=== PATIENT | female | born 1970 | race Caucasian/White ===

== ENCOUNTER → 2023-08-27 | Outpatient (CLI) | payer OTHER ==
--- NOTE | 2023-08-27 14:30 | CT ---
EXAMINATION TYPE: CT abdomen pelvis wo con DATE OF EXAM: 08/27/2023 HISTORY: LT flank pain, hematuria, U-shape kidney. CT DLP: 754.50 mGycm. Automated Exposure Control for Dose Reduction was Utilized. TECHNIQUE: CT scan of the abdomen and pelvis is performed without oral or IV contrast. COMPARISON: NONE FINDINGS: Within the limitations of a non-contrast study, the following observations are made. LUNG BASES: No significant abnormality is appreciated. LIVER/GB: Liver is diffusely low dense consistent with fatty infiltrative hepatocellular disease. Cho lecystectomy clips are seen. PANCREAS: No significant abnormality is seen. SPLEEN: No significant abnormality is seen. ADRENALS: No significant abnormality is seen. KIDNEYS: There is a horseshoe type kidney or fusion of the lower pole. No renal stones or hydronephro sis seen bilaterally. No intraluminal calculus in the bladder. BOWEL: Appendix within normal limits ascending from the cecum. No abnormal small or large bowel dilat ation. Mild to moderate right-sided colonic fecal prominence. GENITAL ORGANS: Anteverted uterus. LYMPH NODES: No greater than 1 cm adenopathy. OSSEOUS STRUCTURES: Multilevel facet arthropathy in the lower lumbar spine. OTHER: No significant additional abnormality is seen. IMPRESSION: No renal stones or hydronephrosis is seen bilaterally. Source of patient's symptoms is no t identified. If symptoms of hematuria persists further investigation with nonemergent CT urogram wou ld be advised.
== END | disposition home or self-care (01) ==
LOC: RADCTMAIN 12:46
PROVIDERS: ATTEND Family Medicine
DX: N28.9 Disorder of kidney and ureter, unspecified (principal); R10.9 Unspecified abdominal pain; R31.9 Hematuria, unspecified
CPT/HCPCS: 74176

== ENCOUNTER 2023-11-23 14:48 | Emergency (ER) | payer OTHER ==
[2023-11-23] MEDS: SODIUM CHLORIDE 0.9% 1,000 ML IV ONE (15:20)
[2023-11-23] MEDS: ONDANSETRON 4 MG/2 ML VIAL IVP STA (15:21)
--- NOTE | 2023-11-23 15:36 | ED ---
General Adult HPI - General Chief complaint: Nausea/Vomiting/Diarrhea Stated complaint: abd cramping/IBS Time Seen by Provider: 11/23/23 14:57 Source: patient, RN notes reviewed, old records reviewed Mode of arrival: ambulatory Limitations: no limitations - History of Present Illness Initial comments: 52-year-old female presenting with abdominal cramping and diarrhea over the past 3 days. Patient was exposed to a child with gastrointestinal illness and vomiting. She does report crampy abdominal pain associate with her diarrhea. Nausea without vomiting. No fever. Patient has been trying to eat but every time she eats she has further diarrhea. No recent antibiotic exposure. Diarrhea is watery. - Related Data Home Medications Medication Instructions Recorded Confirmed Levothyroxine Sodium [Synthroid] 100 mcg PO DAILY 11/23/23 11/23/23 Omeprazole 20 mg PO DAILY 11/23/23 11/23/23 Probiotic Gummy 1 cap PO DAILY 11/23/23 11/23/23 lisinopriL [Zestril] 10 mg PO DAILY 11/23/23 11/23/23 Allergies Allergy/AdvReac Type Severity Reaction Status Date / Time Sulfa (Sulfonamide Allergy Rash/Hives Verified 11/23/23 16:51 Antibiotics) Review of Systems ROS Statement: Those systems with pertinent positive or pertinent negative responses have been documented in the HPI. ROS Other: All systems not noted in ROS Statement are negative. Past Medical History Additional Past Medical History / Comment(s): IBS History of Any Multi-Drug Resistant Organisms: None Reported Past Surgical History: No Surgical Hx Reported Past Psychological History: No Psychological Hx Reported Smoking Status: Never smoker Past Alcohol Use History: Occasional Past Drug Use History: None Reported General Exam Limitations: no limitations General appearance: alert, in no apparent distress Head exam: Present: atraumatic, normocephalic Eye exam: Present: normal appearance, PERRL ENT exam: Present: normal exam Neck exam: Present: normal inspection. Absent: tenderness, meningismus Cardiovascular Exam: Present: regular rate, normal rhythm GI/Abdominal exam: Present: tenderness Extremities exam: Present: normal inspection, normal capillary refill Neurological exam: Present: alert, oriented X3, CN II-XII intact Psychiatric exam: Present: normal affect, normal mood Skin exam: Present: warm, dry, intact. Absent: cyanosis, diaphoretic Course Vital Signs 11/23/23 14:51 Temperature 98.1 F Pulse Rate 78 Respiratory 20 Rate Blood Pressure 162/75 O2 Sat by Pulse 99 Oximetry Medical Decision Making - Medical Decision Making Was pt. sent in by a medical professional or institution (TIANA Meléndez, BREEDING MANAGER, urgent care, hospital, or longterm...) When possible be specific @ -No Did you speak to anyone other than the patient for history (EMS, parent, family, police, friend...)? What history was obtained from this source @ -No Did you review nursing and triage notes (agree or disagree)? Why? @ -I reviewed and agree with nursing and triage notes Were old charts reviewed (outside hosp., previous admission, EMS record, old EKG, old radiological studies, urgent care reports/EKG's, longterm records)? Report findings @ -No old charts were reviewed Differential Abdominal Pain Women: Appendicitis, Cholecystitis, diverticulosis, ischemic bowel, pancreatitis, hepatitis, UTI, gastroenteritis, AAA, incarcerated hernia, bowel obstruction, constipation, inflammatory bowel, hepatitis, peptic ulcer disease, splenic infarction, perforated viscus, vulvitis, ovarian torsion, PID, kidney stone, placenta abruption, this is not meant to be an all-inclusive list EKG interpreted by me (3pts min.). @ -As above X-rays interpreted by me (1pt min.). @ -None done CT interpreted by me (1pt min.). @ -None done U/S interpreted by me (1pt. min.). @ -None done What testing was considered but not performed or refused? (CT, X-rays, U/S, labs)? Why? @ -None What meds were considered but not given or refused? Why? @ -None Did you discuss the management of the patient with other professionals (pro fessionals i.e. TIANA Meléndez, BREEDING MANAGER, lab, RT, psych nurse, social service agency director, intellectual property lawyer, teacher, county health officer, case picker)? Give summary @ -No Was smoking cessation discussed for >3mins.? @ -No Was critical care preformed (if so, how long)? @ -No Were there social determinants of health that impacted care today? How? (Homelessness, low income, unemployed, alcoholism, drug addiction, transportation, low edu. Level, literacy, decrease access to med. care, prison, rehab)? @ -No Was there de-escalation of care discussed even if they declined (Discuss DNR or withdrawal of care, Hospice)? DNR status @ -No What co-morbidities impacted this encounter? (DM, HTN, Smoking, COPD, CAD, Cancer, CVA, ARF, Chemo, Hep., AIDS, mental health diagnosis, sleep apnea, morbid obesity)? @ -None Was patient admitted / discharged? Hospital course, mention meds given and route, prescriptions, significant lab abnormalities, going to OR and other pertinent info. @ -52-year-old female presenting with 3 to 4 days of diarrhea, generalized cramping abdominal pain. Vital signs are stable. She does have mild generalized abdominal tenderness. No vomiting. No fever. She has normal white blood cell count, stable hemoglobin, normal electrolytes. Patient has no further diarrhea while in the emergency department. She will monitor symptoms closely and return as needed. She is going to follow-up with her primary care provider tomorrow. Undiagnosed new problem with uncertain prognosis? @ -No Drug Therapy requiring intensive monitoring for toxicity (Heparin, Nitro, Insulin, Cardizem)? @ -No Were any procedures done? @ -No Diagnosis/symptom? @ -[Diarrhea Acute, or Chronic, or Acute on Chronic? @ -Acute Uncomplicated (without systemic symptoms) or Complicated (systemic symptoms)? @ -Default Side effects of treatment? @ -No Exacerbation, Progression, or Severe Exacerbation? @ -No Poses a threat to life or bodily function? How? (Chest pain, [place], [place], pneumonia, PE, COPD, DKA, ARF, appy, cholecystitis, CVA, Diverticulitis, Homicidal, Suicidal, threat to staff... and all critical care pts) @ -No - Lab Data Result diagrams: 11/23/23 15:13 11/23/23 15:13 Lab Results 11/23/23 11/23/23 Range/Units 15:13 15:13 WBC 9.4 (3.8-10.6) k/uL RBC 4.69 (3.80-5.40) m/uL Hgb 14.8 (11.4-16.0) gm/dL Hct 43.6 (34.0-46.0) % MCV 93.0 (80.0-100.0) fL MCH 31.4 (25.0-35.0) pg MCHC 33.8 (31.0-37.0) g/dL RDW 13.5 (11.5-15.5) % Plt Count 269 (150-450) k/uL MPV 8.4 Neutrophils % 63 % Lymphocytes % 26 % Monocytes % 6 % Eosinophils % 3 % Basophils % 1 % Neutrophils # 5.9 (1.3-7.7) k/uL Lymphocytes # 2.4 (1.0-4.8) k/uL Monocytes # 0.6 (0-1.0) k/uL Eosinophils # 0.3 (0-0.7) k/uL Basophils # 0.1 (0-0.2) k/uL Sodium 141 (137-145) mmol/L Potassium 4.1 (3.5-5.1) mmol/L Chloride 104 (98-107) mmol/L Carbon Dioxide 26 (22-30) mmol/L Anion Gap 11 mmol/L BUN 8 (7-17) mg/dL Creatinine 0.72 (0.52-1.04) mg/dL Est GFR (CKD-EPI)AfAm >90 (>60 ml/min/1.73 sqM) Est GFR (CKD-EPI)NonAf >90 (>60 ml/min/1.73 sqM) Glucose 88 (74-99) mg/dL Calcium 9.5 (8.4-10.2) mg/dL Magnesium 2.1 (1.6-2.3) mg/dL Total Bilirubin 0.5 (0.2-1.3) mg/dL AST 42 H (14-36) U/L ALT 69 H (4-34) U/L Alkaline Phosphatase 99 (38-126) U/L Total Protein 7.6 (6.3-8.2) g/dL Albumin 4.5 (3.5-5.0) g/dL Disposition Clinical Impression: Diarrhea Disposition: HOME SELF-CARE Condition: Fair Instructions (If sedation given, give patient instructions): Acute Diarrhea (ED) Is patient prescribed a controlled substance at d/c from ED?: No Referrals: Marylin Dorman MD [Primary Care Provider] - 1-2 days Time of Disposition: 17:02
[2023-11-23 15:42] LABS: ALT 69 U/L (4-34); AST 42 U/L (14-36); African American GFR (CKD) >90 (>60 ml/min/1.73 sqM); Albumin 4.5 g/dL (3.5-5.0); Alkaline Phosphatase 99 U/L (38-126); Anion Gap 11 mmol/L; Blood Urea Nitrogen 8 mg/dL (7-17); Calcium 9.5 mg/dL (8.4-10.2); Carbon Dioxide 26 mmol/L (22-30); Chloride 104 mmol/L (98-107); Glucose 88 mg/dL (74-99); Magnesium 2.1 mg/dL (1.6-2.3); Non-African American GFR(CKD) >90 (>60 ml/min/1.73 sqM); Potassium 4.1 mmol/L (3.5-5.1); Sodium 141 mmol/L (137-145); Total Bilirubin 0.5 mg/dL (0.2-1.3); Total Protein 7.6 g/dL (6.3-8.2)
[2023-11-23 16:17] LABS: Basophils # (A) 0.1 k/uL (0-0.2); Basophils % (A) 1 %; Eosinophils # (A) 0.3 k/uL (0-0.7); Eosinophils % (A) 3 %; HCT 43.6 % (34.0-46.0); HGB 14.8 gm/dL (11.4-16.0); Lymphocytes # (A) 2.4 k/uL (1.0-4.8); Lymphocytes % (A) 26 %; MCH 31.4 pg (25.0-35.0); MCHC 33.8 g/dL (31.0-37.0); Mean Platelet Volume 8.4; Monocytes # (A) 0.6 k/uL (0-1.0); Monocytes % (A) 6 %; Neutrophils # (A) 5.9 k/uL (1.3-7.7); Neutrophils % (A) 63 %; Platelet Count 269 k/uL (150-450); RBC 4.69 m/uL (3.80-5.40); RDW 13.5 % (11.5-15.5); WBC 9.4 k/uL (3.8-10.6)
[2023-11-23 17:10] VITALS: BP 129/79; PULSE 57; RESP 16; TEMP 98.4
== END 2023-11-23 17:15 | disposition home or self-care (01) ==
LOC: EC 14:48
DX: R10.9 Unspecified abdominal pain
CPT/HCPCS: 36415; 80053; 83735; 85025; 96361; 96374; 99284

== ENCOUNTER 2024-07-30 11:49 | Emergency (ER) | payer OTHER ==
[2024-07-30 11:54] VITALS: TEMP 97.9
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
[2024-07-30] MEDS: HYDROmorphone 1 MG/ML 1 ML SYRINGE IVP STA (12:37)
[2024-07-30 12:45] LABS: Basophils # (A) 0.09 10*3/uL (0.00-0.10); Eosinophils # (A) 0.27 10*3/uL (0.04-0.35); HCT 44.1 % (37.2-46.3); HGB 15.2 g/dL (12.0-15.0); Lymphocytes % (A) 30.7 %; MCH 31.1 pg (27.0-32.0); MCHC 34.5 g/dL (32.0-37.0); MCV 90.2 fL (80.0-97.0); Mean Platelet Volume 10.5 fL (9.5-12.2); Monocytes # (A) 0.57 10*3/uL (0.20-1.00); Monocytes % (A) 6.3 %; Neutrophils # (A) 5.37 10*3/uL (1.80-7.70); Neutrophils % (A) 58.9 %; Platelet Count 284 10*3/uL (140-440); RBC 4.89 10*6/uL (4.10-5.20); RDW 13.2 % (11.5-14.5); WBC 9.11 10*3/uL (4.50-10.00)
[2024-07-30 12:57] LABS: INR 0.9 (<1.2); Partial Thromboplastin Time 26.5 sec (22.0-30.0); Prothrombin Time 10.4 sec (10.0-12.5)
[2024-07-30 12:58] LABS: ALT 40 U/L (4-34); AST 31 U/L (14-36); African American GFR (CKD) >90 (>60 ml/min/1.73 sqM); Albumin 4.6 g/dL (3.5-5.0); Alkaline Phosphatase 117 U/L (38-126); Amylase 69 U/L (30-110); Anion Gap 11 mmol/L; Blood Urea Nitrogen 12 mg/dL (7-17); Carbon Dioxide 26 mmol/L (22-30); Chloride 102 mmol/L (98-107); Glucose 85 mg/dL (74-99); Lipase 79 U/L (23-300); Non-African American GFR(CKD) >90 (>60 ml/min/1.73 sqM); Sodium 139 mmol/L (137-145); Total Bilirubin 0.8 mg/dL (0.2-1.3); Total Protein 7.9 g/dL (6.3-8.2)
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
[2024-07-30] MEDS: ONDANSETRON 4 MG/2 ML VIAL IVP STA ×2 (14:05→16:13)
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
[2024-07-30 16:01] VITALS: BP 133/79; PULSE 56; RESP 16
== END 2024-07-30 16:45 | disposition home or self-care (01) ==
LOC: EC 11:49
DX: S30.1XXA Contusion of abdominal wall, initial encounter (principal); Z88.2 Allergy status to sulfonamides; X58.XXXA Exposure to other specified factors, initial encounter
CPT/HCPCS: 36415; 80053; 82150; 83690; 85025; 85610; 85730; 71101; 74177; 99284; 96374; 96375; 96376; J2405; J1171; Q9967